=== PATIENT | female | born 1985 | race African-American/Black ===

== ENCOUNTER 2018-10-16 20:22 | Outpatient (CLI) | payer OTHER ==
[~2018-10-16] VITALS: Ht 165.1 cm; Wt 110.0 kg
[2018-10-16 20:46] VITALS: BP 120/75; PULSE 97; RESP 18
[2018-10-16 20:48] VITALS: Ht 165.1 cm; Wt 110.0 kg
[2018-10-16] MEDS ORDERED: LACTATED RINGER'S 1,000 ML IV ONE (21:00)
[2018-10-16] MEDS ORDERED: LACTATED RINGER'S 1,000 ML IV SCH (22:00)
[2018-10-16] MEDS ORDERED: TERBUTALINE 1 MG/ML INJ SC ONE (22:30)
--- NOTE | 2018-10-16 23:42 | PN ---
Triage Information Date/Time Reason for visit: Weeks of Gestation 34w 2d /Para Objective Vital Signs Date Temp Pulse Resp B/P (MAP) Pulse Ox O2 O2 Flow FiO2 Time Delivery Rate 10/16/18 98.6 97 18 120/75 Room Air 20:46 (90) Heart Rate Comments reactive Contractions: >10 Minutes Apart Exam SVE: L/C Results/Medications Results 24 hrs Laboratory Tests Test 10/16/18 20:57 Urine Color YELLOW Urine Clarity CLEAR Urine pH 7.0 Urine Specific [place] 1.009 Urine Ketones NEGATIVE Urine Nitrite NEGATIVE Urine Bilirubin NEGATIVE Urine Urobilinogen NEGATIVE Urine Leukocyte Esterase NEGATIVE Urine Hemoglobin NEGATIVE Urine Glucose NEGATIVE Urine Total Protein NEGATIVE Medications Current Medications Lactated Ringer's 1,000 ml @ 125 mls/hr Q8H IV Last administered on 10/16/18at 22:03; Admin Dose 125 MLS/HR; Start 10/16/18 at 22:00 Disposition: Discharge Assessment/Plan 33 y/o at 34w 2d who presented with R. wrist pain but noted to have UCs on tocometer, which improved with IVFs and terbutaline. SVE with L/C. -discharge home -wrist pain, suspect carpal tunnel -> to ER or urgent care for further evaluation -f/u with OB ANKUR MCCARTY Oct 16, 2018 23:42
== END 2018-10-16 23:40 | disposition home or self-care (01) ==
LOC: OBT 20:22 → L-D 20:24 → OBT 23:40
PROVIDERS: ATTEND Obstetrics & Gynecology
DX: O26.893 Other specified pregnancy related conditions, third trimester (principal); Z3A.34 34 weeks gestation of pregnancy; M25.531 Pain in right wrist
CPT/HCPCS: 36415; 81003; 96360; 96361; 96372; J3105; J7120; Z7500; G0463

== ENCOUNTER 2018-11-13 16:22 | Outpatient (CLI) | payer OTHER ==
[~2018-11-13] VITALS: Ht 165.1 cm; Wt 108.2 kg
[2018-11-13 16:44] VITALS: Ht 165.1 cm; Wt 108.2 kg
[2018-11-13 16:45] VITALS: BP 123/59; PULSE 88; RESP 18
[2018-11-13] MEDS ORDERED: PREN1TAB13 PO (20:13)
--- NOTE | 2018-11-13 20:15 | PN ---
Triage Information Date/Time Reason for visit: Uterine contractions Weeks of Gestation 33-year-old 3 para 2 at 38 weeks and 2 days of gestation with estimated date of delivery November 25, 2018 She presents with chief complaint of nausea and vomiting x1 this afternoon and uterine contractions She reports positive movement, denies any vaginal bleeding or leaking fluid /Para 3 para 2 Diabetes: none Hypertention: none Objective Vital Signs Date Temp Pulse Resp B/P (MAP) Pulse Ox O2 O2 Flow FiO2 Time Delivery Rate 11/13/18 98.6 88 18 123/59 16:45 (80) Heart Rate: 140's Heart Rate Comments heart rate tracing category 1 Contractions: < 5 Minutes Apart Exam Cervix 1-2 cm/70%/-2 per nurse Results/Medications Result Diagram: 11/13/188 11/13/188 Results 24 hrs Laboratory Tests Test 11/13/18 16:38 11/13/18 16:58 Urine Color YELLOW Urine Clarity CLOUDY A Urine pH 7.0 Urine Specific [place] 1.012 Urine Ketones NEGATIVE Urine Nitrite NEGATIVE Urine Bilirubin NEGATIVE Urine Urobilinogen NEGATIVE Urine Leukocyte Esterase NEGATIVE Urine Microscopic RBC 0 Urine Microscopic WBC 1 Urine Squamous Epithelial Cells MANY A Urine Hemoglobin NEGATIVE Urine Glucose NEGATIVE Urine Total Protein NEGATIVE White Blood Count 3.6 #L Red Blood Count 4.24 Hemoglobin 11.7 L Hematocrit 35.8 L Mean Corpuscular Volume 84.4 Mean Corpuscular Hemoglobin 27.6 L Mean Corpuscular Hemoglobin Concent 32.7 Red Cell Distribution Width 13.2 Platelet Count 281 Mean Platelet Volume 8.7 # Immature Granulocytes % 0.300 Neutrophils % 57.1 Lymphocytes % 27.0 Monocytes % 15.3 H Eosinophils % 0.3 Basophils % 0.0 Nucleated Red Blood Cells % 0.6 H Immature Granulocytes # 0.010 Neutrophils # 2.1 Lymphocytes # 1.0 Monocytes # 0.6 Eosinophils # 0.0 Basophils # 0.0 Nucleated Red Blood Cells # 0.0 Sodium Level 137 Potassium Level 4.1 Chloride Level 107 Carbon Dioxide Level 21 Anion Gap 9 Blood Urea Nitrogen 6 L Creatinine 0.59 Est Glomerular Filtrat Rate mL/min > 60 Glucose Level 75 Calcium Level 10.1 Total Bilirubin 0.9 Direct Bilirubin 0.00 Indirect Bilirubin 0.9 Aspartate Amino Transf (AST/SGOT) 25 Alanine Aminotransferase (ALT/SGPT) 15 Alkaline Phosphatase 93 Total Protein 7.0 Albumin 3.6 Globulin 3.40 H Albumin/Globulin Ratio 1.05 Imaging Results PROCEDURE: US OB. CLINICAL INDICATION: Contractions TECHNIQUE: Multiple sonographic images of the pelvis were obtained. The images were reviewed on a PACS workstation. COMPARISON: No prior studies are available for comparison. FINDINGS: There is a single live intrauterine . cardiac activity is identified at a rate of 146 beats per minute. presentation is cephalic. Placenta is anterior grade II. Biophysical profile score is as follows: Breathing 2 Movements 2 Tone 2 Fluid volume 2 Amniotic fluid index = 17.19 cm Total biophysical profile score = 03/04 IMPRESSION: Biophysical profile score = 03/04 RPTAT: HH .Wilver Pinto MD, MD Date Time Electronically viewed and signed by .Wilver Pinto MD, MD on 11/13/2018 18:06 .W/ CC: LOUISE BAH MD [phone] Disposition: Discharge Assessment/Plan After a few hours of observation the cervical exam remained unchanged kick count instructions were given Labor precautions were given Patient instructed to follow-up with her own [facility] in 1 to 2 days BRIAN FLANAGAN MD Nov 13, 2018 20:15
--- NOTE | 2018-11-13 20:30 | TRIAGE ---
OB Triage Datetime Report Generated by CPN: 11/13/2018 20:30 Datetime: 11/13/2018 20:07 Labor Evaluation Frequency: 1.5-5 Monitor Mode: External Duration (sec)2399: 70-110 Quality: Mild Pattern: Normal: <= 5 Contractions in 10 Minutes Resting Tone [place]: Relaxed Heart Rate FHR Baseline Rate: 135 Monitor Mode: External US Variability: Moderate 6-25 bpm Accelerations: 15X15 Decelerations: None Category: Category I Datetime: 11/13/2018 19:50 Labor Evaluation Frequency: 1.5-5.5 Monitor Mode: External Duration (sec)2399: 60-110 Quality: Mild Pattern: Normal: <= 5 Contractions in 10 Minutes Resting Tone [place]: Relaxed Interventions: Side to Side; Provider Notified Heart Rate FHR Baseline Rate: 135 Monitor Mode: External US Variability: Moderate 6-25 bpm Accelerations: 15X15 Decelerations: Variable Category: Category II Comments: variable noted Datetime: 11/13/2018 19:38 Vaginal Exam Dilatation (cms): 1.5 Effacement (%): 50 Station: -2 Exam By: jean carlos regalado Membrane Status: Intact Vaginal Bleeding: None Cervix, Consistency: Moderate Cervix, Position: Midposition Datetime: 11/13/2018 19:28 Comments: periods of monitor loss of contact d/t maternal BMI, position, _ lots of movement t hat's audible on the monitor. Datetime: 11/13/2018 19:19 Monitor Mode: External Monitor Mode: External US Datetime: 11/13/2018 19:12 Maternal Assessment Level of Consciousness: Fully Conscious DTR's/Clonus: DTRs 2+; No Clonus Headache: Denies Breath Sounds, Left: Clear and Equal Breath Sounds, Right: Clear and Equal Nausea/Vomiting: Denies (Annotations: pt denies any N/V currently) RUQ Epigastric Pain: Denies Pain Assessment Pain Scale: 4 Pain Presence: Intermittent Pain Type: Contraction Pain Location: Abdomen; Back Pain Relief Measures: Comfort Measures Datetime: 11/13/2018 18:46 Labor Evaluation Frequency: 2-4 Monitor Mode: External Duration (sec)2399: 50-60 Quality: Mild Pattern: Normal: <= 5 Contractions in 10 Minutes Resting Tone [place]: Relaxed Heart Rate FHR Baseline Rate: 135 Variability: Moderate 6-25 bpm Accelerations: 10X10 Decelerations: None Category: Category I Pain Assessment Pain Scale: 2 Pain Presence: Intermittent Pain Type: Cramping Pain Goal: 3 Pain Relief Measures: Comfort Measures Datetime: 11/13/2018 18:21 Stage of : OB Triage Datetime: 11/13/2018 17:41 Vaginal Exam Dilatation (cms): 1.5 Effacement (%): 70 Station: -2 Exam By: S MARÍA Vaginal Bleeding: None Cervix, Consistency: Soft Cervix, Position: Posterior Presentation 'A': Cephalic Datetime: 11/13/2018 17:17 Labor Evaluation Frequency: 2-4 Monitor Mode: External Duration (sec)2399: 50-70 Pattern: Normal: <= 5 Contractions in 10 Minutes Resting Tone [place]: Relaxed Heart Rate FHR Baseline Rate: 125 Monitor Mode: External US Variability: Moderate 6-25 bpm Accelerations: 10X10 Decelerations: None Category: Category I Pain Assessment Pain Scale: 2 Pain Presence: Intermittent Pain Type: Cramping Pain Goal: 3 Pain Relief Measures: Comfort Measures Datetime: 11/13/2018 16:45 Stage of : OB Triage Datetime: 11/13/2018 16:35 Stage of : OB Triage Assessment Type: Triage Maternal Assessment Level of Consciousness: Fully Conscious DTR's/Clonus: DTRs 2+; No Clonus Headache: Denies Blurred Vision: No Respiratory Effort: Unlabored; Regular Rhythm; Equal Expansion Breath Sounds, Left: Clear and Equal Breath Sounds, Right: Clear and Equal Nausea/Vomiting: Denies RUQ Epigastric Pain: Denies Facial Edema: None Temperature Route: Axillary Fall Risk Assessment History of Falling: (0) No Secondary Diagnosis: (0) No Ambulatory Aid: (0) Bedrest/Nurse Assist IV Therapy: (0) No Gait: (0) Normal/Bedrest/Immobile Mental Status: (0) Oriented to Own Ability Fall Score: 0 Fall Risk Score Definition: No Risk: No action required Labor Evaluation Frequency: 3-4 Monitor Mode: External Duration (sec)2399: 60-100 Quality: Mild Pattern: Normal: <= 5 Contractions in 10 Minutes Resting Tone [place]: Relaxed Heart Rate FHR Baseline Rate: 145 Monitor Mode: External US Variability: Moderate 6-25 bpm Accelerations: None Decelerations: None Pain Assessment Pain Scale: 2 Pain Presence: Intermittent Pain Type: Cramping Pain Location: Right Groin Pain Goal: 3 Pain Relief Measures: Comfort Measures Datetime: 11/13/2018 16:34 Time of Arrival: 11/13/2018 16:12 EGA: 38.2 Arrived By: Ambulatory Chief Complaint: C/O VOMITING X1 AT APPROX 1PM, DENIES LEAKING, BLEEDING, BUT HAS UC'S Movement: Decreased Contractions: Irregular Rupture of Membranes: Denies Vaginal Bleeding: None Vaginal Discharge: Denies Recent Sexual Intercouse: Denies Abdominal Trauma: Not Applicable Patient Complaints: Contractions; Cramping; Vomiting Time Provider Notified: 11/13/2018 16:12 Provider Notified: Initial Plan: VS, EFM, SVE BPP w/ANDREA, CBC, CMP, UA Datetime: 11/13/2018 16:28 EGA: 34.2 Datetime: 10/16/2018 20:39 Fall Score: 0 Fall Risk Score Definition: No Risk: No action required Datetime: 10/16/2018 20:38 EGA: 34.2
== END 2018-11-13 20:21 | disposition home or self-care (01) ==
LOC: OBT 16:22 → L-D 16:23 → OBT 20:21
PROVIDERS: ATTEND Obstetrics & Gynecology
DX: O62.9 Abnormality of forces of labor, unspecified (principal); O21.2 Late vomiting of pregnancy; Z3A.38 38 weeks gestation of pregnancy
CPT/HCPCS: 76818; 80053; 81001; 85025; 87086; Z7500; G0463

== ENCOUNTER 2018-11-17 16:53 | Outpatient (CLI) | payer OTHER ==
[~2018-11-17] VITALS: Ht 165.1 cm; Wt 107.5 kg
[~2018-11-17 16:53] MED LIST: PREN1TAB13 PO
[2018-11-17 17:04] VITALS: BP 132/83; PULSE 96; RESP 17; Ht 165.1 cm; Wt 107.5 kg
--- NOTE | 2018-11-17 18:48 | PN ---
Triage Information Date/Time Reason for visit: Uterine contractions Weeks of Gestation 38+ /Para 4/1 Diabetes: none Hypertention: none Objective Vital Signs Date Temp Pulse Resp B/P (MAP) Pulse Ox O2 O2 Flow FiO2 Time Delivery Rate 11/17/18 98.2 96 17 132/83 17:04 (99) Heart Rate: 140's Contractions: >10 Minutes Apart Disposition: Discharge Assessment/Plan CX closed BPP 05/06 Precaution discussed Questions answered Follow up with provider VIJAY LANDA M.D. Nov 17, 2018 18:48
--- NOTE | 2018-11-17 18:59 | TRIAGE ---
OB Triage Datetime Report Generated by CPN: 11/17/2018 18:59 Datetime: 11/17/2018 18:44 Labor Evaluation Frequency: 1-8 Monitor Mode: Palpation Duration (sec)2399: 60-80 Quality: Mild Pattern: Normal: <= 5 Contractions in 10 Minutes Resting Tone [place]: Relaxed Heart Rate FHR Baseline Rate: 135 Variability: Moderate 6-25 bpm Accelerations: 15X15 Decelerations: None Category: Category I Datetime: 11/17/2018 18:26 Vaginal Exam Dilatation (cms): 0.5 Exam By: wliu Datetime: 11/17/2018 18:00 Labor Evaluation Frequency: 1-9 Monitor Mode: External Duration (sec)2399: 50-120 Quality: Mild Pattern: Normal: <= 5 Contractions in 10 Minutes Resting Tone [place]: Relaxed Heart Rate FHR Baseline Rate: 135 Monitor Mode: External US Variability: Moderate 6-25 bpm Accelerations: 15X15 Decelerations: None Category: Category I Datetime: 11/17/2018 17:07 Assessment Type: Triage Maternal Assessment Level of Consciousness: Fully Conscious DTR's/Clonus: DTRs 2+; No Clonus Headache: Denies Blurred Vision: No Respiratory Effort: Unlabored; Regular Rhythm; Equal Expansion Breath Sounds, Left: Clear and Equal Breath Sounds, Right: Clear and Equal Nausea/Vomiting: Denies RUQ Epigastric Pain: Denies Lower Extremities Edema: None Degree: None Upper Extremities Edema: None Facial Edema: None Fall Risk Assessment History of Falling: (0) No Secondary Diagnosis: (0) No Ambulatory Aid: (0) Bedrest/Nurse Assist IV Therapy: (0) No Gait: (0) Normal/Bedrest/Immobile Mental Status: (0) Oriented to Own Ability Fall Score: 0 Fall Risk Score Definition: No Risk: No action required Datetime: 11/17/2018 17:06 Time of Arrival: 11/17/2018 16:39 EGA: 38.6 Arrived By: Ambulatory Arrived From: Home Chief Complaint: C/O UC since an hour ago, deny vag. bleeding, deny srom Movement: Present Contractions: Irregular Rupture of Membranes: Denies Vaginal Discharge: Denies Recent Sexual Intercouse: Denies Abdominal Trauma: Not Applicable Patient Complaints: Contractions Time Provider Notified: 11/17/2018 17:23 Provider Notified: Initial Plan: r/o labor Datetime: 11/17/2018 17:02 Vaginal Exam Dilatation (cms): 0.5 Station: -3 Exam By: ryan Datetime: 11/13/2018 16:35 Fall Score: 0 Fall Risk Score Definition: No Risk: No action required Datetime: 11/13/2018 16:34 EGA: 38.2 Datetime: 11/13/2018 16:28 EGA: 34.2 Datetime: 10/16/2018 20:39 Fall Score: 0 Fall Risk Score Definition: No Risk: No action required Datetime: 10/16/2018 20:38 EGA: 34.2
== END 2018-11-17 19:00 | disposition home or self-care (01) ==
LOC: L-D 16:53 → OBT 16:53
PROVIDERS: ATTEND Obstetrics & Gynecology
DX: O62.9 Abnormality of forces of labor, unspecified (principal); Z3A.38 38 weeks gestation of pregnancy
CPT/HCPCS: 76818; Z7500; G0463

== ENCOUNTER 2018-11-21 16:31 | Inpatient (IN) | payer OTHER ==
[~2018-11-21] VITALS: Ht 165.1 cm; Wt 109.0 kg
--- NOTE | 2018-11-21 16:46 | TRIAGE ---
OB Triage Datetime Report Generated by CPN: 11/21/2018 16:46 Datetime: 11/21/2018 16:42 Time of Arrival: 11/21/2018 16:30 EGA: 39.3 Arrived By: Ambulatory Arrived From: Home Chief Complaint: SROM AT 1615 Movement: Present Time Contractions Began: 11/21/2018 13:15 Rupture of Membranes: Ruptured Vaginal Bleeding: None Vaginal Discharge: Denies Recent Sexual Intercouse: Denies Abdominal Trauma: Not Applicable Patient Complaints: Contractions; Other Time Provider Notified: 11/21/2018 16:40 Provider Notified: DR KELLY Initial Plan: EFM,CALL DR KELLY ALONZO ESHAGHIAN Datetime: 11/21/2018 16:41 Maternal Assessment Level of Consciousness: Fully Conscious DTR's/Clonus: DTRs 2+; No Clonus Headache: Denies Blurred Vision: No Respiratory Effort: Unlabored; Regular Rhythm; Equal Expansion Breath Sounds, Left: Clear and Equal Breath Sounds, Right: Clear and Equal Nausea/Vomiting: Denies RUQ Epigastric Pain: Denies Facial Edema: None Temperature Route: Axillary Fall Risk Assessment History of Falling: (0) No Secondary Diagnosis: (0) No Ambulatory Aid: (0) Bedrest/Nurse Assist IV Therapy: (0) No Gait: (0) Normal/Bedrest/Immobile Mental Status: (0) Oriented to Own Ability Fall Score: 0 Fall Risk Score Definition: No Risk: No action required Datetime: 11/17/2018 17:07 Fall Score: 0 Fall Risk Score Definition: No Risk: No action required Datetime: 11/17/2018 17:06 EGA: 38.6 Vaginal Bleeding: None Datetime: 11/13/2018 16:35 Fall Score: 0 Fall Risk Score Definition: No Risk: No action required Datetime: 11/13/2018 16:34 EGA: 38.2 Datetime: 11/13/2018 16:28 EGA: 34.2 Datetime: 10/16/2018 20:39 Fall Score: 0 Fall Risk Score Definition: No Risk: No action required Datetime: 10/16/2018 20:38 EGA: 34.2
[2018-11-21 16:51] VITALS: BP 127/85; PULSE 77; RESP 20; Ht 165.1 cm; Wt 109.0 kg
[2018-11-21] MEDS ORDERED: MISOPROSTOL 200 MCG TAB PR PRN ×2 (17:00→21:30)
[2018-11-21] MEDS ORDERED: OXYTOCIN 30 UNITS/LR 500 ML IV PRN ×2 (17:00→21:30)
[2018-11-21] MEDS ORDERED: OXYTOCIN 30 UNITS/LR 500 ML IV SCH ×3 (17:00→21:07)
[2018-11-21] MEDS ORDERED: CARBOPROST 250 MCG INJ IM PRN ×2 (17:00→21:30)
[2018-11-21] MEDS ORDERED: IBUPROFEN 600 MG TAB PO PRN (17:00)
[2018-11-21] MEDS ORDERED: LIDOCAINE 1% (MPF) 30 ML INJ INJ PRN (17:00)
[2018-11-21] MEDS ORDERED: METHYLERGONOVINE 0.2 MG INJ IM PRN ×2 (17:00→21:30)
[2018-11-21] MEDS: LACTATED RINGER'S 1,000 ML IV SCH ×2 (17:10→18:21)
[2018-11-21] MEDS ORDERED: FENTAnyl 2MCG/ML-ROPIV 0.2% 100 ML ONE (18:04)
[2018-11-21] MEDS ORDERED: FENTAnyl 2MCG/ML-ROPIV 0.2% 100 ML BAG EPI SCH (19:30)
[2018-11-21] MEDS ORDERED: NALOXONE (0.4 MG/ML) INJ IV PRN (19:30)
--- NOTE | 2018-11-21 19:30 | PREAC ---
Date/Time of Note Date/Time of Note DATE: 11/21/18 TIME: 19:28 Anesthesia Eval and Record Evaluation Time Pre-Procedure Interview DATE: 11/21/18 TIME: 17:33 Age 33 Sex female NPO: 8 hrs Preoperative diagnosis iup @ 39 wks., , labor Planned procedure jim Past Medical History Past Medical History: Includes : : (4), Gestational age: (40 wks.) Surgery & Anesthesia Issues No known issue Meds Anticoagulation: No Beta Dany within 24 hr: No Reason Beta Dany not given: Pt. not on B-Dany Reported Medications Pnv95/Ferrous Fumarate/FA ( Vitamins Tablet) 1 Each Tablet, 1 EACH PO, TAB 11/13/18 Current Medications Lactated Ringer's 1,000 ml @ 125 mls/hr Q8H IV Last administered on 11/21/18at 18:21; Admin Dose 125 MLS/HR; Start 11/21/18 at 16:54 Lidocaine (Xylocaine 1% (Mpf)) 30 ml ONCE PRN INJ .EPISIOTOMY; Start 11/21/18 at 17:00 Oxytocin/Lactated Ringer's 500 ml @ 500 mls/hr ONCE POST IV ; Start 11/21/18 at 17:00 Oxytocin/Lactated Ringer's 500 ml @ 125 mls/hr POST IV ; Start 11/21/18 at 17:00 Ibuprofen (Motrin) 600 mg ONCE PRN PO .PAIN 1-5; Start 11/21/18 at 17:00 Oxytocin/Lactated Ringer's 500 ml @ 0 mls/hr ONCE PRN IV .VAGINAL BLEEDING; Start 11/21/18 at 17:00 Methylergonovine Maleate (Methergine) 0.2 mg ONCE PRN IM .VAGINAL BLEEDING; Start 11/21/18 at 17:00 Carboprost Tromethamine (Hemabate) 250 mcg ONCE PRN IM .VAGINAL BLEEDING; Start 11/21/18 at 17:00 Misoprostol (Cytotec) 1,000 mcg ONCE PRN CO .VAGINAL BLEEDING; Start 11/21/18 at 17:00 Meds reviewed: Yes Allergies Uncoded Allergies: VINEGAR,TOMATOES,BAKERS YEAST (Allergy, Intermediate, HIVES, 11/12/14) NKDA (Allergy, Unknown, 10/16/18) Allergies Reviewed: Yes Labs/Studies Labs Reviewed: Reviewed by anesthesiologist Result Diagram: 11/21/18 1726 Laboratory Tests 11/21/18 17:26 Blood Bank Test 11/21/18 17:26 Antibody Screen NEGATIVE Blood Type O POSITIVE Rh Immune Globulin Candidate NO test: Positive Studies: ECG (n/a), CXR (n/a) Pre-procedure Exam Last vitals Vital Signs Date Temp Pulse Resp B/P (MAP) Pulse Ox O2 O2 Flow FiO2 Time Delivery Rate 11/21/18 98.4 77 20 127/85 Room Air 16:51 (99) Airway: Adequate mouth opening, Adequate thyromental dist Mallampati: Mallampati II Teeth: Normal Lung: Normal Heart: Normal ASA Physical Status ASA physical status: 2 Emergency: E Planned Anesthetic Neuraxial: Epidural Planned Pain Management Local by surgeon Pre-operative Attestations Prior to commencing anesthesia and surgery, the patient was re-evaluated, there was verification of: *The patient's identity *The results of appropriate recent lab work and preoperative vital signs *The above evaluation not changing prior to induction *Anesthetic plan, risk benefits, alternative and complications discussed with patient/family; questions answered; patient/family understands, accepts and wishes to proceed. Route Clerk used LINDA KELLOGG MD Nov 21, 2018 19:30
--- NOTE | 2018-11-21 19:30 | PAC ---
Date/Time of Note Date/Time of Note DATE: 11/22/18 TIME: 11:00 Post-Anesthesia Notes Post-Anesthesia Note Last documented vital signs Vital Signs Date Temp Pulse Resp B/P (MAP) Pulse Ox O2 O2 Flow FiO2 Time Delivery Rate 11/21/18 98.4 77 20 127/85 Room Air 16:51 (99) Activity: WNL Respiratory function: WNL Cardiovascular function: WNL Mental status: Baseline Pain reasonably controlled: Yes Hydration appropriate: Yes Nausea/Vomiting absent: Yes LINDA KELLOGG MD Nov 21, 2018 19:30
--- NOTE | 2018-11-21 21:01 | LDN ---
Date/Time of Note Date/Time of Note DATE: 11/21/18 TIME: 20:58 Delivery Summary of a viable baby girl weighing 4380 grams or 9# 10 oz, 20.75" long, and with Apgars of 7/8/9. The baby had some very thick mucous that had to be Deleed out and then she did fine. Weeks of Gestation 39w 3d Placenta Delivered: Spontaneously Meconium: none Episiotomy: No Perineal laceration: 0 Anesthesia type: Epidural Estimated blood loss: 150 Sponge & Needle done & correct: Yes Any foreign bodies felt in the: No (vagina) Infant Delivery Information Sex Sex: female Apgars 1 Minute: 7 5 Minute: 8 10 Minute: 9 Suctioning Nose & mouth suctioned at heydi: Yes Delee suction performed: Yes Umbilical Cord Umbilical cord with: 3 Vessels Cord presentations: no nuchal cord Cord Blood was obtained: Yes Mother & Baby Disposition Disposition Mom & Baby to Maternity; Good: Yes Baby to NICU: No FAB KELLY MD Nov 21, 2018 21:01
--- NOTE | 2018-11-21 21:06 | HP ---
Date/Time of Note Date/Time of Note DATE: 11/21/18 TIME: 21:02 OB - History Hx of Present Free Text/Dictation 33 y.o. with an IUP at 39w 3d came in active labor at 90%/7 cm with ruptured membranes. Chief Complaint: Labor Estimated Due Date: November 25, 2018 : 3 Para: 2 Care: Good Care Ultrasounds: Normal mid trimester US Obstetrical Complications: None Medical Complications: None Other Concerns: PMHx: none. PSHx: none. NKDA. Past Family/Social History * Past Medical, Surgical, Family and Obstetric Histories reviewed from chart. Blood Type: O+ Rubella: not immune (equivocal) RPR/VDRL: Negative GBS Status: Negative HBsAG: Negative OB Admission Exam Vital Signs Vital Signs Vital Signs Date Temp Pulse Resp B/P (MAP) Pulse Ox O2 O2 Flow FiO2 Time Delivery Rate 11/21/18 98.4 77 20 127/85 Room Air 16:51 (99) Physical Exam HEENT: WNL Heart: Rhythm Normal Lungs: Clear Abdomen: WNL Extremities: Normal Reflexes: Normal Cervical Dilatation: 7cm Effacement: Other (90%) Station: -2 Membranes: Ruptured Amniotic Fluid: Clear Heart Rate: 130's Accelerations: Accelerations Present Decelerations: No Decelerations Varibility: Moderate Contractions on Admission: < 5 Minutes Apart Intensity: Firm Last 72 hours Lab Results CBC & BMP 11/21/18 17:26 OB Assessment/Plan Reason for admission: active labor Plan: Expectant Management FAB KELLY MD Nov 21, 2018 21:06
[2018-11-21] MEDS: LACTATED RINGER'S 1,000 ML IV* SCH (21:07)
[2018-11-21] MEDS ORDERED: LANOLIN HPA 1 PKT TOP PRN (21:30)
[2018-11-21] MEDS: HYDROCODONE/APAP (5/325) TAB PO PRN (21:31)
[2018-11-21 22:35] VITALS: BP 130/81; PULSE 86; RESP 18
[2018-11-21] MEDS: IBUPROFEN 600 MG TAB PO SCH (23:51)
[2018-11-22 04:00] VITALS: BP 118/79; PULSE 89; RESP 18
[2018-11-22] MEDS: LACTATED RINGER'S 1,000 ML IV* SCH (05:07)
[2018-11-22] MEDS: IBUPROFEN 600 MG TAB PO SCH ×3 (05:43→17:22)
[2018-11-22 07:40] VITALS: BP 112/77; PULSE 66; RESP 18
--- NOTE | 2018-11-22 07:52 | PD.PPDC ---
CLINICAL INFORMATICS SPECIALIST Discharge Instruction Condition [id number] Patient Condition: [id number] Good Diet [id number] Diet: Zpcgf1j Resume Regular Diet Activity/Restrictions [id number] Activity: [id number] Normal Activity May Shower [id number] Restrictions: [id number] No Exercising No Lifting No Driving No Sexual Activity Nothing in the Vagina No Buda No Tampons, douche Follow-up Follow-up with Physician: 3, Week/Weeks Return to clinic for [id number] [employer] Instructions: [id number] Fever greater than 101 Chills Worsening abdominal pain Excessive Vaginal Bleeding More than 2 pads per hour Unable to tolerate diet [id number] OB Instructions: Hukvi3a Breast Tenderness Depression Blurried Vision Headache [id number] Surgical Instructions: [id number] Incisional Drainage Incisional Redness SONYA BATES MD Nov 22, 2018 07:52
--- NOTE | 2018-11-22 07:54 | DS ---
Date/Time of Note Date/Time of Note DATE: 11/22/18 TIME: 07:53 Obstetrical Discharge Record Final Diagnosis Final Diagnosis: Term delivered Vaginal Delivery Obstetrical Delivery: Spontaneous Condition on Discharge Physical Assessment Last Vitals: stable afebrile Voiding: Yes Bowel Movement: Yes Breast: Soft, non-tender, Filling Fundus: Firm Abdomen and Incision: soft nt uterine fundus firm Calf Tenderness: No Patient Condition: Fair SONYA BATES MD Nov 22, 2018 07:54
[2018-11-22] MEDS: SENNA/DOCUSATE NA (8.6MG/50MG) TAB PO SCH ×2 (08:19→21:40)
[2018-11-22] MEDS: HYDROCODONE/APAP (5/325) TAB PO PRN (14:28)
[2018-11-22 16:15] VITALS: BP 118/65; PULSE 81; RESP 18
[2018-11-22 20:45] VITALS: BP 121/63; RESP 18
[2018-11-23] MEDS: IBUPROFEN 600 MG TAB PO SCH ×3 (00:21→13:08)
[2018-11-23 04:00] VITALS: BP 118/72; PULSE 81; RESP 17
[2018-11-23 08:48] VITALS: BP 115/78; PULSE 76; RESP 16
[2018-11-23] MEDS ORDERED: DIPHTH/TET/ACEL PERTUSS (ADULT) 0.5 ML VIAL IM* ONE (09:00)
[2018-11-23] MEDS: SENNA/DOCUSATE NA (8.6MG/50MG) TAB PO SCH (09:05)
[2018-11-23] MEDS ORDERED: MEASLES,MUMPS,RUBELLA VACCINE INJ SC* ONE (12:30)
--- NOTE | 2018-11-24 16:26 | DELSUM ---
Delivery Summary A-C Datetime Report Generated by CPN: 11/24/2018 16:26 DELIVERY PERSONNEL Battery Installer: Ricafrente, Suyapa MATERNAL INFORMATION Delivery Anesthesia: Epidural Medications in Delivery: LR 500 + 30 units pitocin Delivery QBL (ml): 150 Placenta Cultured: No Maternal Complications: None LABOR SUMMARY EDC: 11/25/2018 00:00 No. Babies in Womb: 1 Attempted: No Labor Anesthesia: Epidural LABOR INFORMATION Reason for Induction: Not Applicable Onset of Labor: 11/21/2018 15:45 Complete Dilatation: 11/21/2018 20:19 Other Ripening Agents: N/A Oxytocin: N/A Group B Beta Strep: Negative Antibiotics # of Doses: 0 Steroids Given: None Reason Steroids Not Administered: Not Applicable MEMBRANES Membranes Rupture Method: Spontaneous Rupture of Membranes: 11/21/2018 15:45 Length of Rupture (hr): 4.78 Amniotic Fluid Color: Light Meconium Amniotic Fluid Amount: Moderate STAGES OF LABOR Stage 1 hr: 4 Stage 1 min: 34 Stage 2 hr: 0 Stage 2 min: 13 Stage 3 hr: 0 Stage 3 min: 2 Total Time in Labor hr: 4 Total Time in Labor min: 49 VAGINAL DELIVERY Episiotomy: None Laceration Extension: N/A Laceration Type: None Laceration Repair: Not Applicable Initial Vag Sponge Count: 10 Final Vag Sponge Count: 10 Initial Vag Sharps Count: 1 Final Vag Sharps Count: 1 Sponge Count Correct: Yes; Vaginal Sweep Performed Sharps Count Correct: Yes BABY A INFORMATION Delivery Date/Time: 11/21/2018 20:32 Method of Delivery: Vaginal Born in Route : No : N/A Forceps: N/A Vacuum Extraction: N/A Shoulder Dystocia : N/A SHOULDER DYSTOCIA BABY A Delivery Date/Time: 11/21/2018 20:32 PRESENTATION/POSITION BABY A Presentation: Cephalic Cephalic Presentation: Vertex Vertex Position: Left Occipital Anterior Breech Presentation: N/A PLACENTA INFORMATION BABY A Placenta Delivery Time : 11/21/2018 20:34 Placenta Method of Delivery: Spontaneous Placenta Status: Delivered SCORES BABY A Heart Rate 1 min: >100 bpm Resp Effort 1 min: Slow, Irregular Reflex Irritability 1 min: Cough/Sneeze/Pulls Away Muscle Tone 1 min: Active Motion Color 1 min: Blue/Pale Resuscitation Effort 1 min: Tactile Stimulation; Oxygen; PPV/NCPAP SCORE 1 MIN: 7 Heart Rate 5 min: >100 bpm Resp Effort 5 min: Good Cry Reflex Irritability 5 min: Cough/Sneeze/Pulls Away Muscle Tone 5 min: Active Motion Color 5 min: Blue/Pale Resuscitation Effort 5 min: Tactile Stimulation; Oxygen SCORE 5 MIN: 8 Heart Rate 10 min: >100 bpm Resp Effort 10 min: Good Cry Reflex Irritability 10 min: Cough/Sneeze/Pulls Away Muscle Tone 10 min: Active Motion Color 10 min: Body [place], Extremit Blue Resuscitation Effort 10 min: Tactile Stimulation; Oxygen; PPV/NCPAP SCORE 10 MIN: 9 INFANT INFORMATION BABY A Gestational Age at Delivery: 39.3 Gestational Status: Full Term- 39- 40.6 Weeks Infant Outcome : Liveborn Infant Condition : Stable Infant Sex: Female IDENTIFICATION/MEDS BABY A ID Band Number: [id number] ID Band Location: Right Leg; Left Arm Sensor Applied: Yes Sensor Number: [id number] Sensor Location : Cord Clamp Vitamin K Given : Not Given Erythromycin Given: Not Given WEIGHT/LENGTH BABY A Infant Birthweight (gm): 4380 Weight (lb): 9 Infant Weight (oz): 10 Length (in): 20.75 Infant Length (cm): 52.71 CORD INFORMATION BABY A No. 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
== END 2018-11-23 14:55 | disposition home or self-care (01) | DRG 807 ==
LOC: OBT 16:31 → L-D 16:31 → OBT 16:40 → L-D 16:40 → PP1 22:36
PROVIDERS: ADMIT Obstetrics & Gynecology; ATTEND Obstetrics & Gynecology
PROC: 10E0XZZ Delivery of Products of Conception, External Approach (ICD-10-PCS; principal; 2018-11-21)
DX: O80 Encounter for full-term uncomplicated delivery (principal); Z37.0 Single live birth; Z3A.39 39 weeks gestation of pregnancy; Z23 Encounter for immunization
CPT/HCPCS: 62322; 85025; 85610; 85730; 86592; 86850; 86900; 86901; 87340; 90715; 99464; G0463; J2590; J3010; J7120